=== PATIENT | female | born 1960 | race Caucasian/White ===

== ENCOUNTER → 2018-05-02 | Outpatient (CLI) | payer OTHER | END | disposition home or self-care (01) | LOC: EEG 11:04 | DX: R56.9 Unspecified convulsions (principal) ==

== ENCOUNTER → 2018-05-09 | Outpatient (CLI) | payer OTHER | END | disposition home or self-care (01) | LOC: EEG 09:26 | DX: R56.9 Unspecified convulsions (principal) | CPT/HCPCS: 95819 ==